=== PATIENT | male | born 1975 | race Caucasian/White ===

== ENCOUNTER 2020-12-28 10:07 | Outpatient (REF) | payer OTHER, SELFPAY ==
[2020-12-28 10:15] LABS: MANUAL DIFF FLAG NO
[2020-12-28 10:28] LABS: Basophils Absolute Auto 0.1 X10*3/uL (0.0-0.2); Basophils Percent Auto 0.9 % (0-2); Eosinophils Absolute Auto 0.1 X10*3/uL (0.0-0.4); Eosinophils Percent Auto 2.5 % (0-4); Hematocrit 43.4 % (42-52); Hemoglobin 14.6 g/dl (14.0-18.0); Imm Gran Abs Auto 0.01 X10*3/uL (0.00-0.03); Imm Gran Pct Auto 0.2 % (0.0-0.4); Lymphocytes Absolute Auto 1.9 X10*3/uL (1.2-4.9); Lymphocytes Percent Auto 33.6 % (20-40); Mean Corpuscular HGB Conc 33.6 g/dl (31.0-36.0); Mean Corpuscular Hemoglobin 31.3 pg (27.0-33.0); Mean Corpuscular Volume 92.9 fL (80-98); Mean Platelet Volume 10.8 fL (9.4-12.4); Monocytes Absolute Auto 0.7 X10*3/uL (0.1-1.2); Monocytes Percent Auto 11.7 % (2-11); Neutrophils Absolute Auto 2.9 X10*3/uL (2.0-8.3); Neutrophils Percent Auto 51.1 % (45-73); Platelet Count 211 X10*3/uL (160-400); Red Blood Count 4.67 X10*6/uL (4.60-5.80); Red Cell Distribution Width 11.9 % (11.0-16.0); White Blood Count 5.7 X10*3/uL (4.8-10.8)
[2020-12-28 10:36] LABS: Glucose Urine UA NEG (NEG); Leukocyte Esterase Urine NEG (NEG); Nitrite Urine NEG (NEG); Specific Gravity - Urine 1.025 (1.005-1.025); Urine Blood NEG (NEG); Urine Ketones NEG (NEG); Urine Protein NEG (NEG-TRACE)
[2020-12-28 10:44] LABS: Appearance Urine CLEAR; Color Urine YELLOW
[2020-12-28 10:58] LABS: Alanine Aminotransferase 32 U/L (0-40); Albumin Level 4.3 g/dL (3.5-5.0); Alkaline Phosphatase 88 U/L (39-117); Anion Gap 12 (12-20); Aspartate Amino Transferase 31 U/L (5-37); Bilirubin Total 0.6 mg/dL (0.0-1.0); Blood Urea Nitrogen 16 mg/dL (9-16); Calcium 8.8 mg/dL (8.4-10.2); Carbon Dioxide 27 mmol/L (22-29); Chloride 104 mmol/L (96-108); Cholesterol 213 mg/dL; Estimated Glomerular Filt Rate > 60; Glucose Fasting 94 mg/dL (60-99); HDL Cholesterol 45 mg/dL; LDL Cholesterol Calculated 143 mg/dl; Potassium 4.1 mmol/L (3.3-5.1); Sodium 139 mmol/L (135-145); Total Protein 6.9 g/dL (6.5-8.0); Triglycerides 126 mg/dL
[2020-12-28 11:22] LABS: Reflex LDLD? No; TSH reflex Free T4 1.87 uIU/mL (0.32-4.0)
== END 2020-12-28 10:08 | disposition home or self-care (01) ==
LOC: HO.LNP 10:07
PROVIDERS: Visit Provider Internal Medicine
DX: Z00.00 Encounter for general adult medical examination without abnormal findings (principal); Z12.5 Encounter for screening for malignant neoplasm of prostate; E78.00 Pure hypercholesterolemia, unspecified; E01.0 Iodine-deficiency related diffuse (endemic) goiter
CPT/HCPCS: 80053; 80061; 81003; 84153; 84443; 85025

== ENCOUNTER 2021-12-30 11:23 | Outpatient (REF) | payer OTHER, SELFPAY ==
[2021-12-30 11:26] LABS: MANUAL DIFF FLAG NO
[2021-12-30 12:33] LABS: Basophils Absolute Auto 0.1 X10*3/uL (0.0-0.2); Basophils Percent Auto 0.9 % (0-2); Eosinophils Absolute Auto 0.1 X10*3/uL (0.0-0.4); Eosinophils Percent Auto 1.9 % (0-4); Hemoglobin 15.9 g/dl (14.0-18.0); Imm Gran Abs Auto 0.02 X10*3/uL (0.00-0.03); Imm Gran Pct Auto 0.3 % (0.0-0.4); Lymphocytes Absolute Auto 1.9 X10*3/uL (1.2-4.9); Lymphocytes Percent Auto 32.3 % (20-40); Mean Corpuscular HGB Conc 33.1 g/dl (31.0-36.0); Mean Corpuscular Hemoglobin 30.5 pg (27.0-33.0); Monocytes Absolute Auto 0.6 X10*3/uL (0.1-1.2); Neutrophils Absolute Auto 3.1 x10*3/uL (2.0-8.3); Neutrophils Percent Auto 53.6 % (45-73); Platelet Count 230 X10*3/uL (160-400); Red Blood Count 5.22 X10*6/uL (4.60-5.80); Red Cell Distribution Width 12.1 % (11.0-16.0); White Blood Count 5.8 X10*3/uL (4.8-10.8)
[2021-12-30 12:42] LABS: Appearance Urine CLEAR; Color Urine YELLOW; Glucose Urine UA NEG (NEG); Leukocyte Esterase Urine NEG (NEG); Nitrite Urine NEG (NEG); Specific Gravity - Urine >= 1.030 (1.005-1.025); Urine Blood NEG (NEG); Urine Ketones NEG (NEG); Urine Protein NEG (NEG-TRACE)
[2021-12-30 13:28] LABS: RBC Urine 0-2 /HPF (0); WBC Urine 0 /HPF (0-4)
[2021-12-30 13:38] LABS: Alanine Aminotransferase 30 U/L (0-40); Albumin Level 4.4 g/dL (3.5-5.0); Alkaline Phosphatase 92 U/L (39-117); Anion Gap 14 (12-20); Aspartate Amino Transferase 25 U/L (5-37); Bilirubin Total 0.6 mg/dL (0.0-1.0); Blood Urea Nitrogen 13 mg/dL (9-16); Calcium 8.9 mg/dL (8.4-10.2); Carbon Dioxide 26 mmol/L (22-29); Chloride 104 mmol/L (96-108); Cholesterol 231 mg/dL; Estimated Glomerular Filt Rate > 60; Glucose Fasting 70 mg/dL (60-99); HDL Cholesterol 45 mg/dL; LDL Cholesterol Calculated 157 mg/dl; Potassium 3.8 mmol/L (3.3-5.1); Sodium 140 mmol/L (135-145); Total Protein 7.2 g/dL (6.5-8.0); Triglycerides 149 mg/dL
[2021-12-30 14:00] LABS: PSA,Total (Free>4and<10) 0.23 ng/mL (0.00-4.00); TSH reflex Free T4 2.18 uIU/mL (0.32-4.0)
== END 2021-12-30 11:24 | disposition home or self-care (01) ==
LOC: HO.LNP 11:23
PROVIDERS: Visit Provider Internal Medicine
DX: Z00.00 Encounter for general adult medical examination without abnormal findings (principal); Z12.5 Encounter for screening for malignant neoplasm of prostate; E78.00 Pure hypercholesterolemia, unspecified; E01.0 Iodine-deficiency related diffuse (endemic) goiter
CPT/HCPCS: 80053; 80061; 81001; 84153; 84443; 85025

== ENCOUNTER 2022-12-29 11:31 | Outpatient (REF) | payer OTHER, SELFPAY ==
[2022-12-29 11:36] LABS: MANUAL DIFF FLAG NO
[2022-12-29 13:29] LABS: Basophils Percent Auto 0.7 % (0-2); Eosinophils Absolute Auto 0.1 X10*3/uL (0.0-0.4); Eosinophils Percent Auto 1.9 % (0-4); Hematocrit 48.9 % (42.0-52.0); Hemoglobin 16.2 g/dl (14.0-18.0); Imm Gran Abs Auto 0.01 X10*3/uL (0.00-0.03); Imm Gran Pct Auto 0.2 % (0.0-0.4); Lymphocytes Absolute Auto 1.8 X10*3/uL (1.2-4.9); Lymphocytes Percent Auto 33.3 % (20-40); Mean Corpuscular HGB Conc 33.1 g/dl (31.0-36.0); Mean Corpuscular Hemoglobin 30.6 pg (27.0-33.0); Mean Corpuscular Volume 92.4 fL (80.0-98.0); Mean Platelet Volume 10.3 fL (9.4-12.4); Monocytes Absolute Auto 0.7 X10*3/uL (0.1-1.2); Monocytes Percent Auto 12.2 % (2-11); Neutrophils Absolute Auto 2.8 x10*3/uL (2.0-8.3); Neutrophils Percent Auto 51.7 % (45-73); Platelet Count 241 X10*3/uL (160-400); Red Blood Count 5.29 X10*6/uL (4.60-5.80); Red Cell Distribution Width 12.5 % (11.0-16.0); White Blood Count 5.3 X10*3/uL (4.8-10.8)
[2022-12-29 13:33] LABS: Appearance Urine Clear; Color Urine Yellow; Glucose Urine UA Negative (Negative); Leukocyte Esterase Urine Negative (Negative); Nitrite Urine Negative (Negative); PH 5.5 (5.0-9.0); Specific Gravity - Urine 1.025 (1.005-1.025); Urine Blood Negative (Negative); Urine Ketones Negative (Negative); Urine Protein Negative (Neg-Trace)
[2022-12-29 13:37] LABS: Bacteria Urine None Seen (None Seen); RBC Urine 0-2 /HPF (0-2); Squamous Epithelial Cell Urine 0-2 /HPF (0-2); WBC Urine 0-5 /HPF (0-5)
[2022-12-29 13:43] LABS: Alanine Aminotransferase 30 U/L (0-40); Albumin Level 4.2 g/dL (3.5-5.0); Alkaline Phosphatase 91 U/L (39-117); Anion Gap 16 (12-20); Aspartate Amino Transferase 26 U/L (5-37); Bilirubin Total 0.6 mg/dL (0.0-1.0); Blood Urea Nitrogen 13 mg/dL (9-16); Carbon Dioxide 22 mmol/L (22-29); Chloride 105 mmol/L (96-108); Cholesterol 221 mg/dL; Estimated Glomerular Filt Rate > 60; Glucose Fasting 97 mg/dL (60-99); HDL Cholesterol 43 mg/dL; LDL Cholesterol Calculated 152 mg/dl; Sodium 139 mmol/L (135-145); Total Protein 7.2 g/dL (6.5-8.0); Triglycerides 130 mg/dL
[2022-12-29 13:47] LABS: PSA,Total (Free>4and<10) 0.45 ng/mL (0.00-4.00)
[2022-12-29 13:49] LABS: TSH reflex Free T4 1.89 uIU/mL (0.32-4.0)
== END 2022-12-29 11:32 | disposition home or self-care (01) ==
LOC: HO.LNP 11:31
PROVIDERS: Visit Provider Internal Medicine
DX: Z00.00 Encounter for general adult medical examination without abnormal findings (principal); E78.00 Pure hypercholesterolemia, unspecified; E01.0 Iodine-deficiency related diffuse (endemic) goiter; Z12.5 Encounter for screening for malignant neoplasm of prostate
CPT/HCPCS: 80053; 80061; 81001; 84153; 84443; 85025

== ENCOUNTER 2024-01-02 11:09 | Outpatient (REF) | payer OTHER, SELFPAY ==
[2024-01-02 11:13] LABS: MANUAL DIFF FLAG NO
[2024-01-02 12:36] LABS: Basophils Absolute Auto 0.1 X10*3/uL (0.0-0.2); Basophils Percent Auto 0.9 % (0-2); Eosinophils Absolute Auto 0.2 X10*3/uL (0.0-0.4); Eosinophils Percent Auto 3.6 % (0-4); Hematocrit 49.7 % (42.0-52.0); Hemoglobin 16.9 g/dl (14.0-18.0); Imm Gran Abs Auto 0.02 X10*3/uL (0.00-0.03); Imm Gran Pct Auto 0.4 % (0.0-0.4); Lymphocytes Absolute Auto 1.7 X10*3/uL (1.2-4.9); Lymphocytes Percent Auto 29.5 % (20-40); Mean Corpuscular Hemoglobin 31.5 pg (27.0-33.0); Mean Corpuscular Volume 92.7 fL (80.0-98.0); Mean Platelet Volume 10.7 fL (9.4-12.4); Monocytes Absolute Auto 0.6 X10*3/uL (0.1-1.2); Neutrophils Absolute Auto 3.1 x10*3/uL (2.0-8.3); Neutrophils Percent Auto 54.6 % (45-73); Platelet Count 202 X10*3/uL (160-400); Red Blood Count 5.36 X10*6/uL (4.60-5.80); Red Cell Distribution Width 12.1 % (11.0-16.0); White Blood Count 5.6 X10*3/uL (4.8-10.8)
[2024-01-02 12:49] LABS: Appearance Urine Clear; Color Urine Yellow; Glucose Urine UA Negative (Negative); Leukocyte Esterase Urine Negative (Negative); Nitrite Urine Negative (Negative); Urine Blood Negative (Negative); Urine Ketones Negative (Negative); Urine Protein Negative (Neg-Trace)
[2024-01-02 12:53] LABS: Alanine Aminotransferase 32 U/L (0-40); Albumin Level 4.3 g/dL (3.5-5.0); Alkaline Phosphatase 82 U/L (39-117); Anion Gap 11 (12-20); Aspartate Amino Transferase 24 U/L (5-37); Bacteria Urine None Seen (None Seen); Bilirubin Total 0.5 mg/dL (0.0-1.0); Blood Urea Nitrogen 15 mg/dL (9-16); Calcium 9.8 mg/dL (8.4-10.2); Carbon Dioxide 28 mmol/L (22-29); Chloride 104 mmol/L (96-108); Cholesterol 245 mg/dL (<200); Estimated Glomerular Filt Rate > 60; Glucose Fasting 102 mg/dL (60-99); HDL Cholesterol 45 mg/dL (>40); Hyaline Casts Urine 0-2 /LPF (0-2); LDL Cholesterol Calculated 169 mg/dL (<100); Potassium 4.7 mmol/L (3.3-5.1); RBC Urine 0-2 /HPF (0-2); Sodium 138 mmol/L (135-145); Squamous Epithelial Cell Urine 0-2 /HPF (0-2); Total Protein 7.2 g/dL (6.5-8.0); Triglycerides 157 mg/dL (<150); WBC Urine 0-5 /HPF (0-5)
[2024-01-02 13:08] LABS: TSH reflex Free T4 2.11 uIU/mL (0.32-4.0)
== END 2024-01-02 11:10 | disposition home or self-care (01) ==
LOC: HO.LNP 11:09
PROVIDERS: Visit Provider Internal Medicine
DX: Z00.00 Encounter for general adult medical examination without abnormal findings (principal); E78.00 Pure hypercholesterolemia, unspecified; E01.0 Iodine-deficiency related diffuse (endemic) goiter; Z12.5 Encounter for screening for malignant neoplasm of prostate
CPT/HCPCS: 80053; 80061; 81001; 84153; 84443; 85025

== ENCOUNTER 2024-08-27 07:27 | Day surgery (SDC) | payer OTHER, SELFPAY ==
[2024-07-12 12:25] VITALS: BMI 33.0
--- OUTSIDE RECORDS SUMMARY | 2024-08-16 15:13 | XMS_ITS ---
Author Organization Nakul Mcgee MD Address [address] [place] [address] [place] [phone] Care Team Providers Care Fruit Sorter Name Role Phone Nakul Mcgee Primary Care Provider REASON FOR VISIT Cancel Appt. Encounters Encounter Location Date Provider Diagnosis Nakul Mcgee MD [address] [place] [address] [place] [phone] 07/20/2024 Nakul Mcgee Plan Of Treatment Next Appt Details Provider Name:Nakul Nuñez ier, 03/06/2025 07:00:00 AM, [address] [place] [address], [place] [address], [place], [place], [phone], Provider Name:Nakul Nuñez iexochitl, 03/20/2025 03:30:00 PM, [address] [place] [address], [place] [address], [place], [place], [phone], Progress Notes * KAE HOOKOB:1975 ( 49 yo M)Acc No.[id number]:07/20/2024 Patient:?LESLIE HOOK :1975???Age:49 Y???Sex:Male Address:[address] [place] [address] * * Date:?
--- OUTSIDE RECORDS SUMMARY | 2024-08-16 15:13 | XMS_ITS | Patient Health Record ---
Author Organization Nakul Mcgee MD Address [address] [place], [place] [phone] Care Team Providers Care Wireless Sales Expert Name Role Phone Nakul Mcgee Primary Care Provider Allergies No Known Allergies Results Component Value Reference Range Notes Complete Blood Count Auto Di ff Reviewed date:01/02/2024 12:38:23 PM Interpretation: Performing Lab:[facility], [address] [place] [phone] Notes/Report: White Blood Count 5.6 4.8-10.8 X10*3/uL Red Blood Count 5.36 4.60-5.80 X10*6/uL Hemoglobin 16.9 14.0-18.0 g/dl Hematocrit 49.7 42.0-52.0 % Mean Corpuscular Volume 92.7 80.0-98.0 fL Mean Corpuscular Hemoglobin 31.5 27.0-33.0 pg Mean Corpuscular HGB Conc 34.0 31.0-36.0 g/dl Red Cell Distribution Width 12.1 11.0-16.0 % Platelet Count 202 160-400 X10*3/uL Mean Platelet Volume 10.7 9.4-12.4 fL Neutrophils Percent Auto 54.6 45-73 % Imm Gran Pct Auto 0.4 0.0-0.4 % Lymphocytes Percent Auto 29.5 20-40 % Monocytes Percent Auto 11.0 2-11 % Eosinophils Percent Auto 3.6 0-4 % Basophils Percent Auto 0.9 0-2 % NRBC Pct Auto 0.0 0.0-0.2 /100WBC Neutrophils Absolute Auto 3.1 2.0-8.3 x10*3/u L Imm Gran Abs Auto 0.02 0.00-0.03 X10*3/uL Lymphocytes Absolute Auto 1.7 1.2-4.9 X10*3/u L Monocytes Absolute Auto 0.6 0.1-1.2 X10*3/uL Eosinophils Absolute Auto 0.2 0.0-0.4 X10*3/u L Basophils Absolute Auto 0.1 0.0-0.2 X10*3/uL NRBC Abs Auto 0.000 0.0-0.012 X10*3/uL Comprehensive [place]. Panel Fa st Reviewed date:01/02/2024 05:08:34 PM Interpretation: Performing Lab:[facility], [address] [place] [phone] Notes/Report: Sodium 138 135-145 mmol/L Potassium 4.7 3.3-5.1 mmol/L Chloride 104 96-108 mmol/L Carbon Dioxide 28 22-29 mmol/L Anion Gap 11 12-20 Blood Urea Nitrogen 15 9-16 mg/dL Creatinine 0.92 0.5-1.4 mg/dL Estimated Glomerular Filt Rate > 60 NOTE: For -Pakistani individuals, multiply the result by 1.210. Chronic Kidney Disease: Estimated GFR < 60 mL/min/1.73m2 Severe Kidney Disease: Estimated GFR < 15 mL/min/1.73m2 Glucose Fasting 102 60-99 mg/dL A fasting glucose from 100-125 mg/dl is considered impaired (pre-diabetes). Calcium 9.8 8.4-10.2 mg/dL Bilirubin Total 0.5 0.0-1.0 mg/dL Aspartate Amino Transferase 24 5-37 U/L Alanine Aminotransferase 32 0-40 U/L Total Protein 7.2 6.5-8.0 g/dL Albumin Level 4.3 3.5-5.0 g/dL Alkaline Phosphatase 82 39-117 U/L Lipid Panel Reviewed date:01/02/2024 01:31:43 PM Interpretation: Performing Lab:[facility], [address] [place] [phone] Notes/Report: Triglycerides 157 <150 mg/dL Desirable Triglyceride: less than 150 mg/dL Borderline High Triglyceride 150-199 mg/dL High Triglyceride: 200-499 mg/dL Very High Triglyceride: greater than or equal to 5OO mg/dL Cholesterol 245 <200 mg/dL Desirable Cholesterol: less than 200 mg/dL Borderline High Cholesterol: 200-239 mg/dL High Cholesterol: greater than 239 mg/dL LDL Cholesterol Calculated 169 <100 mg/dL Desirable LDL: less than 100 mg/dL Near Optimal/Above Optimal LDL: 110-129 mg/dL Borderline High LDL: 130-159 mg/dL High LDL: 160-189 mg/dL Very High LDL: greater than or equal to 190 mg/dL HDL Cholesterol 45 >40 mg/dL Desirable HDL: greater than 40 mg/dL Note: This HDL assay may give artificially low results in patients with liver disease. PSA,Total (Free>4and<10) Reviewed date:01/02/2024 01:31:03 PM Interpretation: Performing Lab:[address] [phone] Notes/Report: PSA,Total (Free>4and<10) 0.30 0.00-4.00 ng/mL A Free PSA was not performed: The percentage of Free PSA can be used to enhance the differentiation of prostate cancer from benign prostatic disease in subjects whose PSA levels are between 4.0 and 10.0 ng/mL. For subjects whose PSA levels are below 4.0 or above 10.0 ng/mL, the risk of prostate cancer is determined on the basis of the PSA alone. Therefore the % Free PSA is recommended only for those subjects whose PSA levels are between 4.0 and 10.0 ng/mL. PSA methodology: Jalloh Alinity i Chemiluminescent Microparticle Immunoassay (CMIA) TSH reflex Free T4 Reviewed date:01/02/2024 01:31:32 PM Interpretation: Performing Lab:[facility], [address] [place] [phone] Notes/Report: TSH reflex Free T4 2.11 0.32-4.0 uIU/mL UA ClnCatch+Micro w/rflx Cul t Reviewed date:01/02/2024 05:08:49 PM Interpretation: Performing Lab:[facility], [address] [place] [phone] Notes/Report: Urine, Clean Catch Color Urine Yellow Appearance Urine Clear PH 6.0 5.0-9.0 Glucose Urine UA Negative Negative mg/dL Urine Blood Negative Negative Specific [place] - Urine 1.020 1.005-1.025 Urine Protein Negative Neg-Trace mg/dL Urine Ketones Negative Negative mg/dL Nitrite Urine Negative Negative Leukocyte Esterase Urine Negative Negative RBC Urine 0-2 0-2 /HPF WBC Urine 0-5 0-5 /HPF Squamous Epithelial Cell Urine 0-2 0-2 /HPF Bacteria Urine None Seen None Seen Hyaline Casts Urine 0-2 0-2 /LPF Reason For Referral Reason SCREEN FOR COLON CAN CER Diagnosis 1 Screen for colon can cer (Z12.11) Referral Organization Nakul Mcgee MD Referring Provider First Name Nakul Referring Provider Last Name Arely Referring Provider Speciality Internal M edicine Referred Provider Yogi Crooks Referred Provider Specialty Gastroentero logy General Notes Mary Costello 03/14/2024 09:45:11 AM EDT > REFERRAL FAXED TO [facility] FOR NEW PATIENT APPTTrang Patti A 03/14/2024 10:49:56 AM EDT > PATIENT INFORMED OF Trang FINE Patti A 07/12/2024 10:30:59 AM >OFFICE NOTE RECD Referral Priority Routine Referral Appointment Date 07/01/2024 Medications Medication SIG (Take, Route, Frequency, Duration) Notes Start Date End Date Status Drysol 20 % 1 application to aff ected area at bedtime Externally daily for one week for 30 days 12/12/2017 Active Immunizations Vaccine Route Administration Date Status Comme nts Flu Vaccine Unknown 03/14/2013 Administered flu vac at school Flu[employer]ix Quadrivalent IM Intramuscular 02/25/2014 Administered Flu Vaccine IM Intramuscular 03/24/2015 Administered Flu Vaccine IM Intramuscular 03/01/2016 Administered [facility] Flu Vaccine IM Intramuscular 02/23/2017 Administered pt wa s given the vaccine at [facility] TDaP IM Intramuscular 12/28/2019 Administered Pt was given the vaccine at [facility] in [place]. Tetanus Unknown 12/28/2019 Administered SARS-COV-2 Pfizer Unknown 07/19/2020 Administered SARS-COV-2 Pfizer Unknown 08/09/2020 Administered SARS-COV-2 Pfizer Unknown 04/24/2021 Administered Fluarix Quadrivalent Unknown 03/22/2022 Administered At work [employer] Fluarix Quadrivalent - 150 IM Intramuscular 03/11/2024 Administered Flu Vaccine Unknown 02/25/2014 Pending Social History Tobacco Use: Social History Observation Description Date Details (start date - stop date) Never Smoker NA - NA Tobacco Use/Smoking Question Answer Notes Patient is a nonsmoker Additional Findings: Tobacco Non-User Cu rrent non-smoker, currently using no form of tobacco Alcohol Screen Question Answer Notes Did you have a drink contain ing alcohol in the past year? Yes How often did you have a dri nk containing alcohol in the past year? Monthly or less (1 point) How many drinks did you have on a typical day when you were drinking in the past year? 1 or 2 drinks (0 point) How often did you have 6 or more drinks on one occasion in the past year? Never (0 point) Points 1 Interpretation Negative Problems Problem Type SNOMED Code ICD Code Onset Dates Problem Status W/U Status Risk Notes Problem Labile essential hypertension (838633806) Labile hypertension (I10) Active confirmed Problem 277593915 Cervical disc di sease (M50.90) Active confirmed Problem 581411529 Pure hypercholesterolemia (E78.00) Active confirmed Problem 7090103 Thyromegaly (E01.0) Active confirmed Problem 83936917 Sleep disturbanc e (G47.9) Active confirmed Problem 887615466 Leg cramps, slee p related (G47.62) Active confirmed Vital Signs Blood pressure diastolic 66 mm Hg 07/01/2024 thao ght is up 5 pounds since 03-11-24 Height 72 in 07/01/2024 weight is up 5 pounds since 03-11-24 Blood pressure systolic 102 mm Hg 07/01/2024 weig ht is up 5 pounds since 03-11-24 Weight 252 lbs 07/01/2024 weight is up 5 pounds since 03-11-24 BMI 34.17 kg/m2 07/01/2024 weight is up 5 pounds since 03-11-24 Encounters Encounter Location Date Provider Diagnosis Nakul Mcgee MD [address] [place] [address] Drive [address] [place] [phone] 01/02/2024 Nakul Mcgee Blood tests for rout ine general physical examination Z00.00 ; Pure hypercholesterolemia E78.00 and Thyromegaly E01.0 Nakul Mcgee MD [address] [place] [phone] 03/11/2024 Nakul Mcgee Physical exam, annua l Z00.00 ; Leg cramps, sleep related G47.62 ; Pure hypercholesterolemia E78.00 and Encounter for immunization Z23 Nakul Mcgee MD [address] [place] [phone] 07/01/2024 Nakul Mcgee Cervical disc diseas e M50.90 Nakul Mcgee MD [address] [place] [id number] 01/01/2024 Nakul Mcgee MD [address] [place] [id number] 07/20/2024 Nakul Mcgee MD [address] [place] [phone] 01/02/2024 Nakul Mcgee Hyperhidrosis R61 aNkul Mcgee MD [address] [place] [phone] 06/24/2024 Nakul Mcgee Assessments Encounter Date Diagnosis (ICD Code) Assessment Notes Treatment Notes Treatment Clinical Notes Section Notes 01/02/2024 Blood tests for rout ine general physical examination (ICD-10 - Z00.00) 01/02/2024 Pure hypercholesterolemia (ICD-10 - E78.00) 03/11/2024 Physical exam, annua l (ICD-10 - Z00.00) appt with dr cali or naga/ REFERRAL MADE . WILL FAX WHEN NOTE LOCKED 03/11/2024 Leg cramps, sleep related (ICD-10 - G47.62) have resolved with stopping the atorvaastain 07/01/2024 Cervical disc diseas e (ICD-10 - M50.90) order faxed to [facility] , pending diagnostic testing 01/02/2024 Hyperhidrosis (ICD-1 0 - R61) 01/02/2024 Thyromegaly (ICD-10 - E01.0) 03/11/2024 Pure hypercholesterolemia (ICD-10 - E78.00) wants to try diet again 03/11/2024 Encounter for immunization (ICD-10 - Z23) Plan Of Treatment Pending Test Test Name Order Date Electrocardiogram (EKG) 12/20/2018 MRI CERVICAL SPINE NO CONTRAST 5 Next Appt Details Provider Name:Nakul Nuñez ier, 03/06/2025 07:00:00 AM, [address], [address], [place], [phone], Provider Name:Nakul Nuñez ier, 03/20/2025 03:30:00 PM, [address], [address], [place], [place], [phone], Insurance Providers Payer Name Payer Address Payer Phone Subscriber Number Group Number Insured Name Patient Relationship to Insured Coverage Start Date Coverage End Date CARL MACIAS [address] [place] [phone] [id number] LESLIE HOOK Self - patient is the insured Medical (General) History Medical History History ICD Code discussed new recommendations for colono scopy at age 43
--- OUTSIDE RECORDS SUMMARY | 2024-08-16 15:13 | XMS_ITS ---
Author Organization Nakul Mcgee MD Address [address] [place] [address] [place] [phone] Care Team Providers Care Calibration Laboratory Technician Name Role Phone Nakul Mcgee Primary Care Provider Allergies No Known Allergies REASON FOR VISIT 3 week Encounters Encounter Location Date Provider Diagnosis Nakul Mcgee MD [address] [place] [address] [address] [place], [place] [phone] 07/23/2024 Nakul Mcgee Plan Of Treatment Next Appt Details Provider Name:Nakul Nuñez ier, 03/06/2025 07:00:00 AM, [address] [place] [address], [address], [phone], Provider Name:Nakul giles, 03/20/2025 03:30:00 PM, [address] [place] [address], [address], [phone], Progress Notes * KAE HOOKOB:1975 ( 49 yo M)Acc No.[id number]:07/23/2024 Progress Notes Patient:?LESLIE HOOK Provider:?Nakul Mcgee MD :1975???Age:49 Y???Sex:Male Oliver e:07/23/2024 Address: [address] [facility] [id number] Subjective: * Chief Complaints: * ???1. 3 week. * ROS:?General/Constitutional:?Denies?Chills.?Denies?Fatigue.?Denies?Fever.?Denies?Headache.?ENT:?Denies?Sore throat.?Respiratory:?Denies?Cough.?Denies?Shortness of breath at rest.?Denies?Shortness of breath with exertion.?Gastrointestinal:?Denies?Diarrhea.?Denies?Nausea.? * Medical History:?Discussed n ew recommendations for colonoscopy at age 43. * Allergies:?N.K.D.A. Objective: * Vitals:? Assessment: Plan: * Treatment: * * The named appointment provid er may or may not be the originator of this progress note, and it is not deemed complete until electronically signed by the appointment provider. Sign off status: Pending * Provider:?Nakul Mcgee MD Date:?0 07/23/2024 Generated for Nora zamarripa/Lovely/Luzitting on:?08/16/2024 03:13 PM EDT
--- OUTSIDE RECORDS SUMMARY | 2024-08-16 15:13 | XMS_ITS ---
Author Organization [facility] Address [address] [place] [address] Care Team Providers Care Outside Collector Name Role Phone Arely BONDS, Nakul Primary Care Provider Yogi Sarmiento Jr REASON FOR VISIT screening Encounters Encounter Location Date Provider Diagnosis [facility] [place] [address] [place] [phone] 07/16/2024 Yogi Crooks Jr Plan Of Treatment Next Appt Details Provider Name:Yogi combs Jr, 08/27/2024 09:10:00 AM, [address] [place] [address], [phone], Progress Notes * KAE HOOKOB:1975 ( 49 yo M)Acc No.[id number]:07/16/2024 COLON WITH MAC Patient:?LESLIE HOOK Provider:?Yoig Crooks MD :1975???Age:49 Y???Sex:Male Oliver e:07/16/2024 Address:[address] [place] [address] [id number] Pcp:Nakul Mcgee MD Subjective: * Chief Complaints: * ???1. Screening. * Medical History:? Objective: * Vitals:? Assessment: Plan: * Treatment: * * The named appointment provid er may or may not be the originator of this progress note, and it is not deemed complete until electronically signed by the appointment provider. Sign off status: Pending * Provider:?Yogi Crooks MD Date:?0 07/16/2024 Generated for Nora zamarripa/Lovely/Smita on:?08/16/2024 03:13 PM EDT
--- OUTSIDE RECORDS SUMMARY | 2024-08-16 15:14 | XMS_ITS ---
Author Organization [facility] Address [address] [place] [phone] Care Team Providers Care Chip Mucker Name Role Phone Nakul Mcgee MD Primary Care Provider Yogi Sarmiento Jr Allergies No Known Allergies REASON FOR VISIT Patient presents today for a COLONOSCOPY Medications Medication SIG (Take, Route, Frequency, Duration) Notes Start Date End Date Status MiraLax (colon prep) 17 GM/SCOOP mixed with Gatorade or Crystal Light Orally begin at 5:00 p.m. the day before the procedure for 1 day 07/01/2024 Active Social History Tobacco Use: Social History Observation Description Date Details (start date - stop date) Never Smoker NA - NA Tobacco Use/Smoking Question Answer Notes Patient is a nonsmoker Alcohol Screen Question Answer Notes Did you have a drink containing alcohol in the p ast year? No Points 0 Interpretation Negative Problems Problem Type SNOMED Code ICD Code Onset Dates Problem Status W/U Status Risk Notes Problem 172309069 Colon cancer screening (Z12.11) Active confirmed Problem 352154413 Encounter for other preprocedural examination (Z01.818) Active confirmed Vital Signs Temperature 97.7 degrees Fahrenheit 07/01/19 25 Blood pressure systolic 001 mm Hg 07/01/19 25 Blood pressure diastolic 001 mm Hg 025 Height 73 in 07/01/2024 Weight 250.2 lbs 07/01/2024 BMI 33.01 kg/m2 07/01/2024 Encounters Encounter Location Date Provider Diagnosis [facility] [address] [place] [phone] 07/01/2024 Yogi Crooks Jr Colon cancer screening Z12.11 and Encounter for other preprocedural examination Z01.818 Assessments Encounter Date Diagnosis (ICD Code) Assessment Notes Treatment Notes Treatment Clinical Notes Section Notes 07/01/2024 Colon cancer screening (ICD-10 - Z12.11) We discussed colonoscopy today including risks and benefits of the procedure today. He understands these and agrees to proceed. This will be scheduled at his convenience. 07/01/2024 Encounter for other preprocedural examination (ICD-10 - Z01.818) We discussed colonoscopy today including risks and benefits of the procedure today. He understands these and agrees to proceed. This will be scheduled at his convenience. Plan Of Treatment Medication Medication Name Sig Start Date Stop Date Notes MiraLax (colon prep) 17 GM/SCOOP mixed with Gatorade or Crystal Light Orally begin at 5:00 p.m. the day before the procedure for 1 day 07/01/2024 Future Test Test Name Order Date COLONOSCOPY 07/01/2024 Next Appt Details Follow Up: 1 Year, Reason: Provider Name:Yogi combs Jr, 08/27/2024 09:10:00 AM, [address] [place] [address], [phone], Progress Notes * KAE HOOKOB:1975 ( 49 yo M)Acc No.[id number]:07/01/2024 Progress Notes Patient:?LESLIE HOOK Provider:?Yogi Crooks MD :1975???Age:49 Y???Sex:Male Oliver e:07/01/2024 Address:[address] [place], [place] [phone] Pcp:Nakul Mcgee MD Subjective: * Chief Complaints: * ???1. Patient presents today for a COLONOSCOPY. * HPI: ???New symptom(s):? Leslie is a pleasant 49-year-old man seen today for strokes preoperative colonoscopy visit. He has no symptoms. * ROS:?General/Constitutional:?Change in appetite?denies.?Fatigue?denies.?ENT:?Patient denies?difficulty swallowing.?Respiratory:?Patient denies?shortness of breath.?Cardiovascular:?Patient denies?chest pain.?Gastrointestinal:?Comments?See HPI for details.?Genitourinary:?Difficulty urinating?denies.?Incontinence?denies.?Musculoskeletal:?Patient denies?muscle aches.?Skin:?Patient denies?pruritis.?Neurologic:?Patient denies?low back pain.?Psychiatric:?Patient denies?mental or physical abuse.? * Medical History:?Hyperlipide guera. * Family History:?Father: ariella mclean?Mother: alive, diagnosed with Diabetes.? No family history of colon cancer or liver cancer. * Social History:?Tobacco Use:?Tobacco Use/Smoking?Patient is a?nonsmoker.?Drugs/Alcohol:?Alcohol Screen?Did you have a drink containing alcohol in the past year??No,?Points?0,?Interpretation?Negative.?Miscellaneous:?Marital status: . Occupation: works full-time teacher. * Medications:?None * Allergies:?N.K.D.A. Objective: * Vitals:?Wt:250.2 lbs, Ht: 73 in, BMI:33.01 Index, BP:001/001 mm Hg, Temp:97.7, Ht-cm: 185.42, Wt-k.49. * Examination: ???General Examination: ?GENERAL APPEARANCE:?in no acute distress.?HEAD:?normocephalic.?EYES:?sclera non-icteric.?ORAL CAVITY:?mucosa moist.?NECK/THYROID:?no lymphadenopathy.?SKIN:?anicteric.?HEART:?S1, S2 normal, no murmurs.?LUNGS:?clear to auscultation bilaterally.?CHEST:?normal shape and expansion.?ABDOMEN:?soft, nontender, nondistended, bowel sounds present, no organomegaly .?EXTREMITIES:?no clubbing, cyanosis, or edema.?PSYCH:?cognitive function intact.? Assessment: * Assessment: 1.?Encounter for other prepr ocedural examination - Z01.818 (Primary)?2.?Colon cancer screening - Z12.11? We discussed colonoscopy tod ay including risks and benefits of the procedure today. He understands these and agrees to proceed. This will be scheduled at his convenience. Plan: * Treatment: * Procedure Codes:?3017F COLOR ECTAL CA SCREEN DOC REV, G9903 Pt scrn tbco id as non user, G9745 DOC RSN FOR NOT SCREEN/REC F/U HBP * Preventive Medicine:? ??Counseling:?Care goal follow-up plan:?Above Normal BMI Follow-up?Dietary management education, guidance, and counseling,?BMI management provided?Yes.? * Follow Up:?1 Year * * Sign off status: Completed true * Provider:?Yogi Crooks MD Date:?0 07/01/2024 Generated for Nora zamarripa/Lovely/eTransmitting on:?08/16/2024 03:13 PM EDT History and Physical Notes * HPI (History of Present Illness) Category Sub-Category Detail Notes Category Not es New symptom(s) Leslie is a pl easant 49-year-old man seen today for strokes preoperative colonoscopy visit. He has no symptoms. Examination Category Sub-Category Detail Notes Category Not es General Examination GENERAL APPEARANCE: in no acute di stress HEAD: normocephalic EYES: sclera non-icteric NECK/THYROID: no lymphadenopathy HEART: S1, S2 normal, no mu rmurs CHEST: normal shape and exp ansion LUNGS: clear to auscultatio n bilaterally ABDOMEN: soft, nontender, non distended, bowel sounds present, no organomegaly SKIN: anicteric EXTREMITIES: no clubbing, cyanosi s, or edema PSYCH: cognitive function i ntact ORAL CAVITY: mucosa moist
--- OUTSIDE RECORDS SUMMARY | 2024-08-16 15:14 | XMS_ITS | Patient Health Record ---
Author Organization [facility] Address [address] [place] [phone] Care Team Providers Care Line Analyst Name Role Phone Nakul Mcgee MD Primary Care Provider Yogi Sarmiento Jr Allergies No Known Allergies Reason For Referral No Information Medications Medication SIG (Take, Route, Frequency, Duration) Notes Start Date End Date Status MiraLax (colon prep) 17 GM/SCOOP mixed with Gatorade or Crystal Light Orally begin at 5:00 p.m. the day before the procedure for 1 day 07/01/2024 Active Immunizations Vaccine Route Administration Date Status Comme nts Influenza Unknown 01/23/2024 Administered Social History Tobacco Use: Social History Observation [...] Problem Status W/U Status Risk Notes Problem 621114706 Colon cancer screening (Z12.11) Active confirmed Problem 982309013 Encounter for other preprocedural examination (Z01.818) Active confirmed Vital Signs Temperature 97.7 degrees Fahrenheit 07/01/2024 Blood pressure diastolic 001 mm Hg 07/01/2024 Height 73 in 07/01/2024 Blood pressure systolic 001 mm Hg 07/01/2024 Weight 250.2 lbs 07/01/2024 BMI 33.01 kg/m2 07/01/2024 Encounters Encounter Location Date Provider Diagnosis [facility] [address] [place] [phone] 07/01/2024 Yogi Crooks Jr Colon cancer screening [...] scheduled at his convenience. Plan Of Treatment Future Test Test Name Order Date COLONOSCOPY 07/01/2024 Next Appt Details Provider Name:Yogi combs Jr, 08/27/2024 09:10:00 AM, [address] [place] [address] , [place], [place], [phone], Insurance Providers Payer Name Payer Address Payer Phone Subscriber Number Group Number Insured Name Patient Relationship to Insured Coverage Start Date Coverage End Date Cigna [address] [facility] [place] [address] [id number] LESLIE HOOK Self - patient is the insured Medical (General) History Medical History History ICD Code Hyperlipidemia
--- OUTSIDE RECORDS SUMMARY | 2024-08-16 15:14 | XMS_ITS ---
Author Organization Nakul Mcgee MD Address [address] [place] [phone] Care Team Providers Care Pharmacy Grad Intern Name Role Phone Nakul Mcgee Primary Care [...] Problem Status W/U Status Risk Notes Problem 157437453 Cervical disc disease (M50.90) Active confirmed Vital Signs Blood pressure systolic 102 mm Hg 07/01/19 25 Blood pressure diastolic 66 mm Hg 025 Height 72 in 07/01/2024 Weight 252 lbs 07/01/2024 BMI 34.17 kg/m2 07/01/2024 weight is up 5 pounds since 03-11-24 Encounters Encounter Location Date Provider Diagnosis Nakul Mcgee MD [address] [place] [phone] 07/01/2024 Nakul Mcgee Cervical disc disease M50.90 [...] Up: 3 Weeks, Reason: Provider Name:Nakul Nuñez tisha, 03/06/2025 07:00:00 AM, [address] [facility], [address], [place], [phone], Provider Name:Nakul Nuñez prestonr, 03/20/2025 03:30:00 PM, [address] [facility], [address], [place], [phone], Progress Notes * TRELLCRISTAL BarbaINDOB:1975 ( 49 yo M)Acc No.[id number]:07/01/2024 Progress Notes Patient:?TRELLLESLIE Barba Provider:?Nakul Mcgee MD :1975???Age:49 Y???Sex:Male Oliver e:07/01/2024 Address:[address] [place] [phone] Subjective: * Chief Complaints: * ???follow up from ER back pa in was put on Prednisone, finished , still c/o of left arm tingling * HPI: ???Symptom(s):?patient is a 49 yo male here for ER follow up visit, was in er for pain in back of left shoulder and tingling down arm to tips of fingers+. * ROS:?General/Constitutional:?Denies?Chills.?Denies?Fatigue.?Denies?Fever.?Denies?Headache.?ENT:?Patient denies?decreased sense of smell, any loss of taste, sore throat.?Denies?Sore throat.?Respiratory:?Denies?Cough.?Denies?Shortness of breath at rest.?Denies?Shortness of breath with exertion.?Gastrointestinal:?Denies?Diarrhea.?Denies?Nausea.?Musculoskeletal:?Patient denies?muscle aches.?Peripheral Vascular:?Patient denies?red and blue toes.? * Medical History:? * Surgical History:? * Hospitalization/Major Diagno stic Procedure:? * Medications:?TakingDrysol 20 % Solution 1 application to affected area at bedtime Externally daily for one week Medication List reviewed and reconciled with the patientTaking Drysol 20 % Solution 1 application to affected area at bedtime Externally daily for one week Medication List reviewed and reconciled with the patient * Allergies:?N.K.D.A.yes[Aller gies Verified] Objective: * Vitals:?Ht: 72, Wt: 252, BMI :34.17, BP:102/66, Wt-k.31. weight is up 5 pounds since 03-11-24. * Examination: ???General Examination: ?GENERAL APPEARANCE:?alert, well hydrated, in no distress.?NEUROLOGIC:?alert and oriented , abnormal no reflex in left upper arm. normal strength testing.? Assessment: * Assessment: 1.?Cervical disc disease - M 50.90 (Primary)??? Plan: * Treatment: * Procedure Codes:? * Follow Up:?3 Weeks * * Sign off status: Completed true * Provider:?Nakul Mcgee MD Date:?0 07/01/2024 Generated for Nora zamarripa/Lovely/eTmalikasmitting on:?08/16/2024 03:13 PM EDT History and Physical [...]
[2024-08-27 07:46] VITALS: BMI 32.0
[2024-08-27 07:57] VITALS: BP 133/86; PULSE 93; RESP 16; TEMP 36.7; O2SAT 98
[2024-08-27] MEDS: Lactated Ringers 1,000 ML 80 ML IVCONT (08:03)
--- NOTE | 2024-08-27 08:12 | PC.NURSE ---
patient c/o lightheadedness few minutes after IV placed. HR 40's. BP 94/60, cool compress applied to patients forehead, bed flat and placed in trendelenburg position. HR improving 71. BP 98/64 patient states Starting to much better Dr. Syed, Anesthesiologist and Dr. Crooks aware.
--- NOTE | 2024-08-27 08:21 | HO.ANESPROP2 ---
HPI - Anesthesia Eval Consult details Narrative: 49 yo male patient for Colonoscopy PMFSH Active Problems Active Problems: Vasovagal episode following IV placement Past Medical History Medical History Hyperlipidemia Family History Family history of problems with anesthesia: No Surgical History History of Problems with Anesthesia: No Social History Social History Are you a primary child care teacher to a significant other at home: No Do you presently have visiting nurse or other home services: No Patient Tobacco Use Status: Never used Tobacco Second Hand Smoke Exposure: No Use of substances other than those prescribed or required for medical reasons: No Have you been hit, kicked, punched, or otherwise hurt by someone within the past year? If so, by whom?: No Are you DNR?: No Advance Directives: No Advance Directives Information Provided: Yes Advance Directives on File: No Meds Allergies Allergy/AdvReac Type Severity Reaction Status Date / Time No Known Allergies Allergy Verified 07/12/24 12:22 Active Medications: Current Medications Lactated Ringer's (Lr) 1,000 mls @ 80 mls/hr IVCONT .[id number] CEFERINO Last Admin: 08/27/24 08:03 Dose: 80 mls/hr Home Medications ?Medication ?Instructions ?Recorded ?Confirmed ?Last Taken ?Type No Known Home Meds 07/12/24 07/12/24 Unknown History Exam Height,Weight and Vital Signs: Height 6 ft 1 in Weight 109.9 kg Last Vital Signs Temp 98.0 F 08/27/24 07:57 Pulse 93 08/27/24 07:57 Resp 16 08/27/24 07:57 BP 133/86 08/27/24 07:57 Pulse Ox 98 08/27/24 07:57 O2 Del Method Room Air 08/27/24 07:57 Airway Mallampati Class: III TM Dist: >3cm Neck ROM: Full Loose/Missing/Broken Teeth: Yes (Missing molars. Denies broken or loose teeth) Heart: RRR Lungs: CTAB Assessment and Plan Assessment Anesthesia Assessment: Anesthesia Plan Discussed and Chart Reviewed Final Anesthetic Review Family History of Problems with Anesthesia: No History of Problems with Anesthesia: No NPO: Yes ASA Class: II Final Preanesthetic Review: No Changes in Pt Med Stat, Meds/Allgs Chart Reviewed, Consent Obtained/Reviewed and Anes Risks/Benef Reviewed Patient Risk: Low Procedure Risk: Low Assessment/Block/Sedation in SS: Assess/Block/Sedation-SS Anesthetic Plan Anesthetic Plan: TIVA Disposition: Standard PACU
--- NOTE | 2024-08-27 08:28 | PM.OP ---
Brief Operative Note Date of Service: 08/27/24 Pre-op diagnosis: screening Procedure: colonoscopy Surgeon: Yogi Crooks MD Anesthesia: MAC Was an Cigar Inspector used for this Procedure?: No Estimated blood loss (mL): 0 Pathology: none sent Condition: stable Disposition: PACU
--- NOTE | 2024-08-27 09:08 | P.HPSUR_ITS ---
Pre-Procedural Eval Section A - 24 Hr Update-Section A only Date of Service: 08/27/24 Section B - Complete if H&P > 30 days Chief Complaint: Encounter for screening for malignant neoplasm of Details of Present Illness: see H&P no changes Relevant Family History (Specify if Yes): No Relevant Social History: None Present Medications: see Short Stay Collaborative assessment Medical History: No relevant PMH History of Previous Operations: No relevant previous surgery Allergies: Allergies Allergy/AdvReac Type Severity Reaction Status Date / Time No Known Allergies Allergy Verified 07/12/24 12:22 Review of Systems Sugical H&P ROS: Negative: Constitution, Cardiovascular, Respiratory, Neurological, Psychiatric, Hem-Onc, Allergic/Immunologic, Gastrointestinal, Genitourinary, Musculoskeletal, Integumentary, Endocrine and Eyes/Ears/No se/Throat Exam Surgical H&P Exam: Normal: HEENT, Normal: Heart, Normal: Lungs, Normal: Extremities, Normal: Abdomen, Normal: Skin and Normal: Neurological Plan Diagnosis/Plan: Unchanged I have reviewed the history and physical and performed a pertinent physical examination on my patient. No changes have occurred unless specified. Time Spent With Patient Time: Total time managing care of this patient today ____ minutes.
[2024-08-27 09:43] VITALS: BP 92/55; RESP 24; TEMP 36.1; O2SAT 95
[2024-08-27 09:58] VITALS: BP 111/74; RESP 18; TEMP 36.2; O2SAT 97
--- NOTE | 2024-08-27 10:08 | OP_ITS ---
DATE OF SERVICE: 08/27/2024 SURGEON: Yogi Crooks MD INDICATIONS: Colon cancer screening. PREOPERATIVE DIAGNOSIS: POSTOPERATIVE DIAGNOSIS: PROCEDURE PERFORMED: ESTIMATED BLOOD LOSS: COMPLICATIONS: ANESTHESIA: ASSISTANTS: SPECIMENS: PROCEDURE: Colonoscopy to the terminal ileum. MEDICATIONS: Monitored anesthesia care. DESCRIPTION OF PROCEDURE: History and physical was performed. The risks and benefits of the procedure were explained to the patient and informed consent was obtained. The patient was placed in the left lateral decubitus position. A digital rectal exam was performed and was found to be normal. The Olympus pediatric video colonoscope was introduced into the rectum and advanced to the cecum. The cecum was identified by transillumination, palpation, and identification of ileocecal valve. Examination was performed. The scope was removed. He tolerated the procedure well and was taken to recovery room in stable condition. FINDINGS: The terminal ileum was examined and appeared normal. The visualized colonic mucosa was within normal limits without evidence of masses or ulcers. No polyps were identified. The quality of the prep was good. Retroflexed examination was normal. There were small hemorrhoids noted. IMPRESSION: Normal colonoscopy. RECOMMENDATION: 1. Follow up as needed. 2. Repeat colonoscopy is recommended in 10 years for average-risk individuals. MD MESSI Burrell/FERNANDO / [id number]
== END 2024-08-27 10:28 | disposition home or self-care (01) ==
PROVIDERS: PCP Internal Medicine; Visit Provider Internal Medicine Gastroenterology
PROC: 0DJD8ZZ Inspection of Lower Intestinal Tract, Via Natural or Artificial Opening Endoscopic (ICD-10-PCS; CPT 45378; principal; 2024-08-27 09:10)
DX: Z12.11 Encounter for screening for malignant neoplasm of colon (principal); K64.8 Other hemorrhoids; E78.5 Hyperlipidemia, unspecified
CPT/HCPCS: 45378; J2003; J2704

== ENCOUNTER 2025-03-06 10:59 | Outpatient (REF) | payer OTHER, SELFPAY ==
--- OUTSIDE RECORDS SUMMARY | 2024-06-24 12:48 | XMS_ITS ---
Author Organization Nakul Mcgee MD Address [address] [place] [phone] Care Team Providers Care Welder Boilermaker Name Role Phone Nakul Mcgee Primary Care Provider REASON FOR VISIT Recent ER Visit Encounters Encounter Location Date Provider Diagnosis Nakul Mcgee MD [address] [place] [phone] 06/24/2024 Nakul Mcgee Plan Of Treatment Next Appt Details Provider Name:Nakul Nuñez ier, 03/20/2025 03:30:00 PM, [address], Suite [facility], [place], [place], [phone], Progress Notes * KAE HOOKOB:1975 ( 49 yo M)Acc No.[id number]:06/24/2024 Patient: LESLIE KNOTT :1975 A ge:49 Y S ex:Male Address: [place], [address] * true * Date: Generated for Printi ng/Faxing/eTransmitting on: 12:53 PM EDT
--- OUTSIDE RECORDS SUMMARY | 2024-07-01 11:00 | XMS_ITS ---
Author Organization Nakul Mcgee MD Address [address] [place] [phone] Care Team Providers Care Loan Approver Name Role Phone Nakul Mcgee Primary Care Provider [phone] Allergies No Known Allergies REASON FOR VISIT follow up from ER back pain was put on Prednisone, finished , still c/o of left arm tingling Medications Medication SIG (Take, Route, Frequency, Duration) Notes Start Date End Date Status Drysol 20 % 1 application to aff ected area at bedtime Externally daily for one week for 30 days 12/12/2017 Active Problems Problem Type SNOMED Code ICD Code Onset Dates Problem Status W/U Status Risk Notes Problem 329208021 Cervical disc disease (M50.90) Active confirmed Vital Signs Blood pressure systolic 102 mm Hg 07/01/19 25 Blood pressure diastolic 66 mm Hg 025 Height 72 in 07/01/2024 Weight 252 lbs 07/01/2024 BMI 34.17 kg/m2 07/01/2024 weight is up 5 pounds since 03-11-24 Encounters Encounter Location Date Provider Diagnosis Nakul Mcgee MD [address] [place] [phone] 07/01/2024 Nakul Mcgee Cervical disc disease M50.90 Assessments Encounter Date Diagnosis (ICD Code) Assessment Notes Treatment Notes Treatment Clinical Notes Section Notes 07/01/2024 Cervical disc disease (ICD-10 - M50.90) order faxed to [facility] , pending diagnostic testing Plan Of Treatment Treatment Notes Assessment Notes Cervical disc disease order faxed to [facility] , pending diagnostic testing Pending Test Test Name Order Date MRI CERVICAL SPINE NO CONTRAST Next Appt Details Follow Up: 3 Weeks, Reason: Provider Name:Nakul Nuñez ier, 03/20/2025 03:30:00 PM, [address], [address], [place], [place], [phone], Progress Notes * CRISTAL HOOKINDOB:1975 ( 49 yo M)Acc No.[id number]:07/01/2024 Progress Notes Patient: LESLIE KNOTT Provider: Santiago Mcgee MD :1975 A ge:49 Y S ex:Male Date:07/01/2024 Address:[address] [place] [address] [address] [facility], [id number] Subjective: * Chief Complaints: * f ollow up from ER back pain was put on Prednisone, finished , still c/o of left arm tingling * HPI: S ymptom(s): patient is a 49 yo male here for ER follow up visit, was in er for pain in back of left shoulder and tingling down arm to tips of fingers+. * ROS: G eneral/Constitutional: Denies C hills. D enies F atigue. D enies F ever. D enies H eadache. E NT: Patient denies d ecreased sense of smell, any loss of taste, sore throat. D enies S ore throat. R espiratory: Denies C ough. D enies S hortness of breath at rest. D enies S hortness of breath with exertion. G astrointestinal: Denies D iarrhea. D enies N ausea. M usculoskeletal: Patient denies m uscle aches. P eripheral Vascular: Patient denies r ed and blue toes. * Medical History: * Surgical History: * Hospitalization/Major Diagno stic Procedure: * Medications: T akingDrysol 20 % Solution 1 application to affected area at bedtime Externally daily for one week Medication List reviewed and reconciled with the patientTaking Drysol 20 % Solution 1 application to affected area at bedtime Externally daily for one week Medication List reviewed and reconciled with the patient * Allergies: N .K.D.A.yes[Allergies Verified] Objective: * Vitals: H t: 72, Wt: 252, BMI:34.17, BP:102/66, Wt-k.31. weight is up 5 pounds since 03-11-24. * Examination: G eneral Examination: GENERAL APPEARANCE: a lert, well hydrated, in no distress.? NEUROLOGIC: a lert and oriented , abnormal no reflex in left upper arm. normal strength testing. Assessment: * Assessment: 1. C ervical disc disease - M50.90 (Primary) Plan: * Treatment: * Procedure Codes: * Follow Up: 3 Weeks * * Sign off status: Completed true * Provider: Santiago Mcgee MD Date: 0 07/01/2024 Generated for Nora zamarripa/Lovely/Kapilsmitting on: 1 12:53 PM EDT History and Physical Notes * HPI (History of Present Illness) Category Sub-Category Detail Notes Category Not es Symptom(s) patient is a 49 yo male here for ER follow up visit, was in er for pain in back of left shoulder and tingling down arm to tips of fingers+ Examination Category Sub-Category Detail Notes Category Not es General Examination GENERAL APPEARANCE: alert, w ell hydrated, in no distress NEUROLOGIC: alert and oriented , abnormal no reflex in left upper arm. normal strength testing
--- OUTSIDE RECORDS SUMMARY | 2024-07-16 07:10 | XMS_ITS ---
Author Organization [facility] Address [address] [place] [phone] Care Team Providers Care Heater Mechanic Name Role Phone Arely BONDS, Nakul Primary Care Provider Yogi Sarmiento Jr [phone] REASON FOR VISIT screening Encounters Encounter Location Date Provider Diagnosis [facility] [address] [place], [place] [phone] 07/16/2024 Yogi Crooks Jr Plan Of Treatment No Information Progress Notes * CRISTAL HOOKINDOB:1975 ( 49 yo M)Acc No.[id number]:07/16/2024 COLON WITH MAC Patient: LESLIE KNOTT Provider: Levi Crooks MD :1975 A ge:49 Y S ex:Male Date:07/16/2024 Address:[address] [place], [place] [phone] Pcp:Nakul Mcgee MD Subjective: * Chief Complaints: * 1 . Screening. * Medical History: Objective: * Vitals: Assessment: Plan: * Treatment: * * The named appointment provid er may or may not be the originator of this progress note, and it is not deemed complete until electronically signed by the appointment provider. Sign off status: Pending * Provider: Levi Crooks MD Date: 0 07/16/2024 Generated for Printi ng/Faxing/eTransmitting on: 1 12:52 PM EDT
--- OUTSIDE RECORDS SUMMARY | 2024-07-20 05:57 | XMS_ITS ---
Author Organization Nakul Mcgee MD Address [address] [place] [phone] Care Team Providers Care Mail Processing Machine Operator Name Role Phone Nakul Mcgee Primary Care Provider REASON FOR VISIT Cancel Appt. Encounters Encounter Location Date Provider Diagnosis Nakul Mcgee MD [address] [facility] [address] [place], [place] [phone] 07/20/2024 Nakul Mcgee Plan Of Treatment Next Appt Details Provider Name:Nakul Nuñez ier, 03/20/2025 03:30:00 PM, [address] [place] [address], [address], [place], [place], [phone], Progress Notes * KAE HOOKOB:1975 ( 49 yo M)Acc No.[id number]:07/20/2024 Patient: LESLIE KNOTT :1975 A ge:49 Y S ex:Male Address: [place], [address] * true * Date: Generated for Printi ng/Faxing/eTransmitting on: 12:52 PM EDT
--- OUTSIDE RECORDS SUMMARY | 2024-07-23 12:15 | XMS_ITS ---
Author Organization Nakul Mcgee MD Address [address] [place] [phone] Care Team Providers Care Montessori Toddler Teacher Name Role Phone Nakul Mcgee Primary Care Provider [phone] Allergies No Known Allergies REASON FOR VISIT 3 week Encounters Encounter Location Date Provider Diagnosis Nakul Mcgee MD [address] [place] [address] [address] [place], [place] [phone] 07/23/2024 Nakul Mcgee Plan Of Treatment Next Appt Details Provider Name:Nakul Nuñez ier, 03/20/2025 03:30:00 PM, [address] [place] [address], [address], [place], [place], [phone], Progress Notes * KAE HOOKOB:1975 ( 49 yo M)Acc No.[id number]:07/23/2024 Progress Notes Patient: LESLIE KNOTT Provider: Santiago Mcgee MD :1975 A ge:49 Y S ex:Male Date:07/23/2024 Address:[address] [place] [address] [place], [id number] Subjective: * Chief Complaints: * 1 . 3 week. * ROS: G eneral/Constitutional: Denies C hills. D enies F atigue. D enies F ever. D enies H eadache. E NT: Denies S ore throat. R espiratory: Denies C ough. D enies S hortness of breath at rest. D enies S hortness of breath with exertion. G astrointestinal: Denies D iarrhea. D enies N ausea. * Medical History: D iscussed new recommendations for colonoscopy at age 43. * Allergies: N .K.D.A. Objective: * Vitals: Assessment: Plan: * Treatment: * * The named appointment provid er may or may not be the originator of this progress note, and it is not deemed complete until electronically signed by the appointment provider. Sign off status: Pending * Provider: Santiago Mcgee MD Date: 0 07/23/2024 Generated for Nora zamarripa/Lovely/Luzitting on: 1 12:53 PM EDT
--- OUTSIDE RECORDS SUMMARY | 2024-08-27 05:10 | XMS_ITS ---
Author Organization [facility] Address [address] [place] [phone] Care Team Providers Care Dog Handler Or Trainer Name Role Phone Nakul Mcgee MD Primary Care Provider Yogi Sarmiento Jr Encounters Encounter Location Date Provider Diagnosis [facility] [place] Out[place] [address] [place] [phone] 08/27/2024 Yogi Crooks Jr Colon cancer screening Z12.11 Assessments Encounter Date Diagnosis (ICD Code) Assessment Notes Treatment Notes Treatment Clinical Notes Section Notes 08/27/2024 Colon cancer screening (ICD-10 - Z12.11) Plan Of Treatment No Information Progress Notes * CRISTAL HOOKLIONELOB:1975 ( 49 yo M)Acc No.[id number]:08/27/2024 COLON WITH MAC Patient: LESLIE KNOTT Provider: Levi Crooks MD :1975 A ge:49 Y S ex:Male Date:08/27/2024 Address:[address] [place], [place] [phone] Pcp:Nakul Mcgee MD Subjective: * Chief Complaints: * * Medical History: Objective: * Vitals: Assessment: * Assessment: 1. C olon cancer screening - Z12.11 (Primary) Plan: * Treatment: * Procedure Codes: 4 5378 DIAGNOSTIC COLONOSCOPY * * The named appointment provid er may or may not be the originator of this progress note, and it is not deemed complete until electronically signed by the appointment provider. Sign off status: Pending * Provider: Levi Crooks MD Date: 0 08/27/2024 Generated for Nora zamarripa/Lovley/Smita on: 1 12:53 PM EDT
--- OUTSIDE RECORDS SUMMARY | 2025-03-06 03:00 | XMS_ITS ---
Author Organization Nakul Mcgee MD Address [address] [place], [place] [id number] Care Team Providers Care Guidance Consultant Name Role Phone Nakul Mcgee Primary Care Provider Results Component Value Reference Range Notes Complete Blood Count Auto Di ff Reviewed date:03/06/2025 12:41:34 PM Interpretation: Performing Lab:[facility], [address] [place] [phone] Notes/Report: White Blood Count 6.2 4.8-10.8 X10*3/uL Red Blood Count 5.39 4.60-5.80 X10*6/uL Hemoglobin 16.7 14.0-18.0 g/dl Hematocrit 49.5 42.0-52.0 % Mean Corpuscular Volume 91.8 80.0-98.0 fL Mean Corpuscular Hemoglobin 31.0 27.0-33.0 pg Mean Corpuscular HGB Conc 33.7 31.0-36.0 g/dl Red Cell Distribution Width 11.9 11.0-16.0 % Platelet Count 212 160-400 X10*3/uL Mean Platelet Volume 10.6 9.4-12.4 fL Neutrophils Percent Auto 56.8 45-73 % Imm Gran Pct Auto 0.5 0.0-0.4 % Lymphocytes Percent Auto 29.2 20-40 % Monocytes Percent Auto 9.5 2-11 % Eosinophils Percent Auto 2.9 0-4 % Basophils Percent Auto 1.1 0-2 % NRBC Pct Auto 0.0 0.0-0.2 /100WBC Neutrophils Absolute Auto 3.6 2.0-8.3 x10*3/u L Imm Gran Abs Auto 0.03 0.00-0.03 X10*3/uL Lymphocytes Absolute Auto 1.8 1.2-4.9 X10*3/u L Monocytes Absolute Auto 0.6 0.1-1.2 X10*3/uL Eosinophils Absolute Auto 0.2 0.0-0.4 X10*3/u L Basophils Absolute Auto 0.1 0.0-0.2 X10*3/uL NRBC Abs Auto 0.000 0.0-0.012 X10*3/uL Lipid Panel Reviewed date:03/06/2025 12:35:14 PM Interpretation: Performing Lab:[address] [phone] Notes/Report: Triglycerides 157 <150 mg/dL Desirable Triglyceride: less than 150 mg/dL Borderline High Triglyceride 150-199 mg/dL High Triglyceride: 200-499 mg/dL Very High Triglyceride: greater than or equal to 5OO mg/dL Cholesterol 239 <200 mg/dL Desirable Cholesterol: less than 200 mg/dL Borderline High Cholesterol: 200-239 mg/dL High Cholesterol: greater than 239 mg/dL LDL Cholesterol Calculated 164 <100 mg/dL Desirable LDL: less than 100 mg/dL Near Optimal/Above Optimal LDL: 110-129 mg/dL Borderline High LDL: 130-159 mg/dL High LDL: 160-189 mg/dL Very High LDL: greater than or equal to 190 mg/dL HDL Cholesterol 44 >40 mg/dL Desirable HDL: greater than 40 mg/dL Note: This HDL assay may give artificially low results in patients with liver disease. UA ClnCatch+Micro w/rflx Cul t Reviewed date:03/06/2025 12:41:09 PM Interpretation: Performing Lab:[address] [phone] Notes/Report: Urine, Clean Catch Color Urine Yellow Appearance Urine Clear PH 5.0 5.0-9.0 Glucose Urine UA Negative Negative mg/dL Urine Blood Negative Negative Specific [place] - Urine 1.015 1.005-1.025 Urine Protein Negative Neg-Trace mg/dL Urine Ketones Negative Negative mg/dL Nitrite Urine Negative Negative Leukocyte Esterase Urine Negative Negative RBC Urine 0-2 0-2 /HPF WBC Urine 0-5 0-5 /HPF Squamous Epithelial Cell Urine 0-2 0-2 /HPF Bacteria Urine None Seen None Seen Hyaline Casts Urine 0-2 0-2 /LPF REASON FOR VISIT FASTING LABS Immunizations Vaccine Route Administration Date Status Comme nts Fluarix Quadrivalent - 150 IM Intramuscular 03/06/2025 Adm inistered Encounters Encounter Location Date Provider Diagnosis Nakul Mcgee MD [address] [place], [place] [phone] 03/06/2025 Nakul Mcgee Blood tests for rout ine general physical examination Z00.00 ; Pure hypercholesterolemia E78.00 ; Thyromegaly E01.0 ; Labile hypertension I10 and Encounter for administration of vaccine Z23 Assessments Encounter Date Diagnosis (ICD Code) Assessment Notes Treatment Notes Treatment Clinical Notes Section Notes 03/06/2025 Blood tests for rout ine general physical examination (ICD-10 - Z00.00) 03/06/2025 Pure hypercholesterolemia (ICD-10 - E78.00) 03/06/2025 Thyromegaly (ICD-10 - E01.0) 03/06/2025 Labile hypertension (ICD-10 - I10) 03/06/2025 Encounter for administration of vaccine (ICD-10 - Z23) Plan Of Treatment Pending Test Test Name Order Date Comprehensive [place]. Panel Fast 5 PSA,Total (Free>4and<10) 03/06/2025 TSH reflex Free T4 03/06/2025 Next Appt Details Provider Name:Nakul Nuñez ier, 03/20/2025 03:30:00 PM, [address], [address], [place], [place], [id number], Progress Notes * KAE HOOKOB:1975 ( 49 yo M)Acc No.[id number]:03/06/2025 Progress Note Patient: LESLIE KNOTT Provider: Santiago Mcgee MD :1975 A ge:49 Y S ex:Male Date:03/06/2025 Address:[address] [place], [place] [id number] Subjective: * Chief Complaints: * 1 . FASTING LABS. * Medical History: Objective: * Vitals: Assessment: * Assessment: 1. B lood tests for routine general physical examination - Z00.00 (Primary) 2 .?Pure hypercholesterolemia - E78.00 3 . T hyromegaly - E01.0 ?4. L abile hypertension - I10 5 . E ncounter for administration of vaccine - Z23 Plan: * Treatment: 2. P ure hypercholesterolemia L AB: Comprehensive [place]. Panel Fast L AB: PSA,Total (Free>4and<10) L AB: TSH reflex Free T4 L AB: Complete Blood Count Auto Diff (Collection Date & Time - 03/06/2025 08:00 AM) L AB: Lipid Panel (Collection Date & Time - 03/06/2025 08:00 AM) L AB: UA ClnCatch+Micro w/rflx Cult (Collection Date & Time - 03/06/2025 08:00 AM) 3. T hyromegaly L AB: Comprehensive [place]. Panel Fast L AB: PSA,Total (Free>4and<10) L AB: TSH reflex Free T4 L AB: Complete Blood Count Auto Diff (Collection Date & Time - 03/06/2025 08:00 AM) L AB: Lipid Panel (Collection Date & Time - 03/06/2025 08:00 AM) L AB: UA ClnCatch+Micro w/rflx Cult (Collection Date & Time - 03/06/2025 08:00 AM) 4. L abile hypertension L AB: Comprehensive [place]. Panel Fast L AB: PSA,Total (Free>4and<10) L AB: TSH reflex Free T4 L AB: Complete Blood Count Auto Diff (Collection Date & Time - 03/06/2025 08:00 AM) L AB: Lipid Panel (Collection Date & Time - 03/06/2025 08:00 AM) L AB: UA ClnCatch+Micro w/rflx Cult (Collection Date & Time - 03/06/2025 08:00 AM) * Immunizations: Fluarix Quadrivalent - 150 : 0.5 mL (Dose No:1) (Route: Intramuscular) given by Laura Garcia , Office Staff on Left Deltoid * Procedure Codes: 3 6415 VENIPUNCT, ROUTINE*, 67055 FLU VACCINE NO PRESERV 3 & >, 57071 IMMUNIZATION ADMIN * * The named appointment provid er may or may not be the originator of this progress note, and it is not deemed complete until electronically signed by the appointment provider. Sign off status: Pending * Provider: Santiago Mcgee MD Date: Generated for Nora zamarripa/Lovely/Smita on: 12:53 PM EDT
[2025-03-06 11:02] LABS: MANUAL DIFF FLAG NO
[2025-03-06 11:19] LABS: Hematocrit 49.5 % (42.0-52.0); Hemoglobin 16.7 g/dl (14.0-18.0); Imm Gran Abs Auto 0.03 X10*3/uL (0.00-0.03); Imm Gran Pct Auto 0.5 % (0.0-0.4); Lymphocytes Absolute Auto 1.8 X10*3/uL (1.2-4.9); Mean Corpuscular HGB Conc 33.7 g/dl (31.0-36.0); Mean Corpuscular Hemoglobin 31.0 pg (27.0-33.0); Mean Corpuscular Volume 91.8 fL (80.0-98.0); NRBC Abs Auto 0.000 X10*3/uL (0.0-0.012); NRBC Pct Auto 0.0 /100WBC (0.0-0.2); Platelet Count 212 X10*3/uL (160-400); Red Blood Count 5.39 X10*6/uL (4.60-5.80); White Blood Count 6.2 X10*3/uL (4.8-10.8)
[2025-03-06 11:23] LABS: Appearance Urine Clear; Glucose Urine UA Negative (Negative); PH 5.0 (5.0-9.0); Specific Gravity - Urine 1.015 (1.005-1.025)
[2025-03-06 11:41] LABS: Alanine Aminotransferase 45 U/L (0-40); Albumin Level 4.5 g/dL (3.5-5.0); Alkaline Phosphatase 86 U/L (39-117); Anion Gap 11 (12-20); Aspartate Amino Transferase 36 U/L (5-37); Blood Urea Nitrogen 14 mg/dL (9-16); Calcium 9.2 mg/dL (8.4-10.2); Carbon Dioxide 28 mmol/L (22-29); Chloride 105 mmol/L (96-108); Cholesterol 239 mg/dL (<200); Estimated Glomerular Filt Rate > 60; HDL Cholesterol 44 mg/dL (>40); Potassium 4.8 mmol/L (3.3-5.1); Sodium 139 mmol/L (135-145); Total Protein 7.3 g/dL (6.5-8.0); Triglycerides 157 mg/dL (<150)
[2025-03-06 11:47] LABS: Thyroid Stimulating Hormone 2.05 uIU/mL (0.32-4.0)
[2025-03-06 11:48] LABS: Prostate Specific Antigen 0.26 ng/mL (<0.05-4.0)
--- OUTSIDE RECORDS SUMMARY | 2025-03-06 12:53 | XMS_ITS | Patient Health Record ---
Author Organization Nakul Mcgee MD Address [address] [place], [place] [phone] Care Team Providers Care Edger Feeder Name Role Phone Nakul Mcgee Primary Care Provider Allergies No Known Allergies Results Component Value Reference Range Notes Complete Blood Count Auto Di ff Reviewed date:03/06/2025 12:41:34 PM Interpretation: Performing Lab:[facility], [address] [place] [phone] Notes/Report: White Blood Count 6.2 4.8-10.8 X10*3/uL [...] Panel Reviewed date:03/06/2025 12:35:14 PM Interpretation: Performing Lab:[address] [phone] Notes/Report: Triglycerides 157 <150 mg/dL Desirable Triglyceride: [...] t Reviewed date:03/06/2025 12:41:09 PM Interpretation: Performing Lab:[address] [phone] Notes/Report: Urine, Clean Catch Color Urine Yellow Appearance Urine Clear PH 5.0 5.0-9.0 Glucose Urine UA Negative Negative mg/dL Urine Blood Negative Negative Specific [place] - Urine 1.015 1.005-1.025 Urine Protein Negative Neg-Trace mg/dL Urine Ketones Negative Negative mg/dL Nitrite Urine Negative Negative Leukocyte Esterase Urine Negative Negative RBC Urine 0-2 0-2 /HPF WBC Urine 0-5 0-5 /HPF Squamous Epithelial Cell Urine 0-2 0-2 /HPF Bacteria Urine None Seen None Seen Hyaline Casts Urine 0-2 0-2 /LPF Comprehensive Met. Panel Reviewed date:03/06/2025 12:32:24 PM Interpretation: Performing Lab:[facility], [address] [place] [phone] Notes/Report: Sodium 139 135-145 mmol/L Potassium 4.8 3.3-5.1 mmol/L Chloride 105 96-108 mmol/L Carbon Dioxide 28 22-29 mmol/L Anion Gap 11 12-20 Blood Urea Nitrogen 14 9-16 mg/dL Creatinine 0.97 0.5-1.4 mg/dL Estimated Glomerular Filt Rate > 60 Chronic Kidney Disease: Estimated GFR < 60 mL/min/1.73m2 Severe Kidney Disease: Estimated GFR < 15 mL/min/1.73m2 Glucose Random 92 60-115 mg/dL Calcium 9.2 8.4-10.2 mg/dL Bilirubin Total 0.5 0.0-1.0 mg/dL Aspartate Amino Transferase 36 5-37 U/L Alanine Aminotransferase 45 0-40 U/L Total Protein 7.3 6.5-8.0 g/dL Albumin Level 4.5 3.5-5.0 g/dL Alkaline Phosphatase 86 39-117 U/L Prostate Specific Antigen Reviewed date:03/06/2025 12:43:03 PM Interpretation: Performing Lab:[facility], [address] [place] [phone] Notes/Report: Prostate Specific Antigen 0.26 <0.05-4.0 ng/mL PSA methodology: [employer] i Chemiluminescent Microparticle Immunoassay (CMIA) Thyroid Stimulating Hormone Reviewed date:03/06/2025 12:34:48 PM Interpretation: Performing Lab:[address] [phone] Notes/Report: Thyroid Stimulating Hormone 2.05 0.32-4.0 uIU/ mL TSH 3rd Generation ([employer]) Reason For Referral Reason SCREEN FOR COLON CAN CER Diagnosis 1 Screen for colon can cer (Z12.11) Referral Organization Nakul Mcgee MD Referring Provider First Name Nakul Referring Provider Last Name Arely Referring Provider Speciality Internal M edicine Referred Provider Yogi Crooks Referred Provider Specialty Gastroentero logy General Notes Chitra Costellomare Barba 03/14/2024 09:45:11 AM EDT > REFERRAL FAXED TO [facility] FOR NEW PATIENT Addie FINEMariahWuMary Barba 03/14/2024 10:49:56 AM EDT > PATIENT INFORMED OF RODYMeirMary Jin 07/12/2024 10:30:59 AM >OFFICE NOTE RECD Referral [...] Administered Flu Vaccine IM Intramuscular 03/01/2016 Administered [facility] Flu Vaccine IM Intramuscular 02/23/2017 Administered pt wa s given the vaccine at [facility] TDaP IM Intramuscular 12/28/2019 Administered Pt was given the vaccine at [facility] in [place]. Tetanus Unknown 12/28/2019 Administered SARS-COV-2 Pfizer Unknown 07/19/2020 Administered SARS-COV-2 Pfizer Unknown 08/09/2020 Administered SARS-COV-2 Pfizer Unknown 04/24/2021 Administered Fluarix Quadrivalent Unknown 03/22/2022 Administered At work [place] [employer] Fluarix Quadrivalent - 150 IM Intramuscular 03/11/2024 Administered Fluarix Quadrivalent - 150 IM Intramuscular 03/06/2025 Administered Flu Vaccine Unknown 02/25/2014 Pending Social [...] Status Risk Notes Problem Labile essential hypertension (372924180) Labile hypertension (I10) Active confirmed Problem 462739509 Cervical disc di sease (M50.90) Active confirmed Problem 839805783 Pure hypercholesterolemia (E78.00) Active confirmed Problem 2405142 Thyromegaly (E01.0) Active confirmed Problem 82080229 Sleep disturbanc e (G47.9) Active confirmed Problem 844915030 Leg cramps, slee p related (G47.62) Active [...] Location Date Provider Diagnosis Nakul Mcgee MD [address] [place] [address] [address] [place] [phone] 03/06/2025 Nakul Mcgee Blood tests for rout ine general physical examination Z00.00 ; Pure hypercholesterolemia E78.00 ; Thyromegaly E01.0 ; Labile hypertension I10 and Encounter for administration of vaccine Z23 Nakul Mcgee MD [address] [place] [address] [address] [place] [id number] 03/11/2024 Nakul Mcgee Physical exam, annua l Z00.00 ; Leg cramps, sleep related G47.62 ; Pure hypercholesterolemia E78.00 and Encounter for immunization Z23 Nakul Mcgee MD [address] [place] [address] [address] [place] [id number] 07/01/2024 Nakul Mcgee Cervical disc diseas e M50.90 Nakul Mcgee MD [address] [place] [id number] 06/24/2024 Nakul Mcgee MD [address] [place], [place] [phone] 07/20/2024 Nakul Mcgee Assessments Encounter Date Diagnosis (ICD Code) Assessment Notes Treatment Notes Treatment Clinical Notes Section Notes 03/06/2025 Blood tests for rout ine general physical examination (ICD-10 - Z00.00) 03/06/2025 Pure hypercholesterolemia (ICD-10 - E78.00) 03/11/2024 Physical exam, andria mitchell (ICD-10 - Z00.00) appt with dr cali or naga/ REFERRAL MADE . WILL FAX WHEN NOTE LOCKED 03/11/2024 Leg cramps, sleep related (ICD-10 - G47.62) have resolved with stopping the atorvaastain 07/01/2024 Cervical disc diseas e (ICD-10 - M50.90) order faxed to [facility] , pending diagnostic testing 03/06/2025 Thyromegaly (ICD-10 - E01.0) 03/11/2024 Pure hypercholesterolemia (ICD-10 - E78.00) wants to try diet again 03/06/2025 Labile hypertension (ICD-10 - I10) 03/11/2024 Encounter for immunization (ICD-10 - Z23) 03/06/2025 Encounter for administration of vaccine (ICD-10 - Z23) Plan Of Treatment Pending Test Test Name Order Date Electrocardiogram (EKG) 12/20/2018 MRI CERVICAL SPINE NO CONTRAST Comprehensive [place]. Panel Fast PSA,Total (Free>4and<10) 03/06/2025 TSH reflex Free T4 03/06/2025 Next Appt Details Provider Name:Nakul Nuñez ier, 03/20/2025 03:30:00 PM, [address], [address], [place], [place], [id number], Insurance Providers Payer Name Payer Address Payer Phone Subscriber Number Group Number Insured Name Patient Relationship to Insured Coverage Start Date Coverage End Date [employer] MACIAS [address] [place] [phone] [id number] LESLIE HOOK Self - patient is the insured Medical (General) History Medical History History ICD Code discussed new recommendations for colono scopy at age 43 colonoscopy 08/27 repeat 10y
--- OUTSIDE RECORDS SUMMARY | 2025-03-06 12:54 | XMS_ITS | Patient Health Record ---
Author Organization [facility] Address [address] [place] [address] Care Team Providers Care [place] Supervisor Name Role Phone Nakul Mcgee MD Primary [...] Problem Status W/U Status Risk Notes Problem 237958620 Colon cancer screening (Z12.11) Active confirmed Problem 154325949 Encounter for other preprocedural examination (Z01.818) Active confirmed Vital Signs Temperature 97.7 degrees Fahrenheit 07/01/2024 Blood pressure diastolic 001 mm Hg 07/01/2024 Height 73 in 07/01/2024 Blood pressure systolic 001 mm Hg 07/01/2024 Weight 250.2 lbs 07/01/2024 BMI 33.01 kg/m2 07/01/2024 Encounters Encounter Location Date Provider Diagnosis [facility] Outpatient [address] [place] [id number] 08/27/2024 Yogi Crooks Jr Colon cancer screening Z12.11 [facility] [address] [place] [address] 07/01/2024 Yogi Crooks Jr Colon cancer screening Z12.11 and Encounter for other preprocedural examination Z01.818 Assessments Encounter Date Diagnosis (ICD Code) Assessment Notes Treatment Notes Treatment Clinical Notes Section Notes 08/27/2024 Colon cancer screening (ICD-10 - Z12.11) 07/01/2024 Colon cancer screening (ICD-10 - Z12.11) [...] Test Test Name Order Date COLONOSCOPY 07/01/2024 Insurance Providers Payer Name Payer Address Payer Phone Subscriber Number Group Number Insured Name Patient Relationship to Insured Coverage Start Date Coverage End Date [employer] [address] [place] [phone] [id number] LESLIE HOOK Self - patient is the insured Medical (General) History Medical History History ICD Code Hyperlipidemia
== END 2025-03-06 11:00 | disposition home or self-care (01) ==
LOC: HO.LNP 10:59
PROVIDERS: Visit Provider Internal Medicine
DX: Z00.00 Encounter for general adult medical examination without abnormal findings (principal); E78.00 Pure hypercholesterolemia, unspecified; E01.0 Iodine-deficiency related diffuse (endemic) goiter; I10 Essential (primary) hypertension; Z12.5 Encounter for screening for malignant neoplasm of prostate
CPT/HCPCS: 80053; 80061; 81001; 84153; 84443; 85025